=== PATIENT | female | born 1955 | race Caucasian/White ===

== ENCOUNTER 2019-04-30 09:36 | Day surgery (SDC) | payer BC ==
[2019-04-30] MEDS ORDERED: PROPOFOL 10 MG/ML VIAL IV ONE (09:37)
[2019-04-30] MEDS ORDERED: LIDOCAINE 2% MDV (20MG/ML) 20ML VIAL IV ONE (09:37)
--- NOTE | 2019-05-03 10:51 | Operative Note ---
SURGEON: Madiha Eagle MD OPERATION: COLONOSCOPY. INDICATIONS: This is a 63-year-old female with history of change in bowel habits who presented for colonoscopy. POSTOPERATIVE DIAGNOSES: 1. Two 3 mm sessile polyps in the descending colon that were removed by cold biopsy forceps. 2. Otherwise normal colon and terminal ileal mucosa with random colon biopsies to rule out microscopic colitis. ANESTHESIA: Sedation is per Anesthesia. Pulse oximetry was monitored throughout the procedure to maintain O2 saturation of 90% or greater. Supplemental oxygen was administered via nasal cannula. Cardiac and vital signs were monitored throughout the duration of the procedure, and they were stable. The procedure of colonoscopy and risks and alternatives of the procedure, including the risk of bleeding and perforation, among others, were explained to the patient who voiced understanding and agreed to have the procedure done. Physical examination was performed, and the patient was found stable for sedation. PROCEDURE: The patient was placed in the left lateral position. Sedation was initiated. A digital rectal exam was performed and showed some mild external hemorrhoids with no palpable rectal masses. An Olympus PCF-180AL colonoscope was then inserted into the rectum under direct visualization. It was advanced to the cecum without difficulty. The ileocecal valve and appendiceal orifice were identified and photographed. The colonic mucosa was carefully examined upon introduction of the colonoscope. There were no lesions noted. The colonoscope was then withdrawn while carefully examining the colonic mucosal surfaces. No lesions were noted in the cecum, ascending colon, or transverse colon. In the descending colon were two 3 mm sessile polyps that were noted and were removed by cold biopsy forceps. The colonoscope was then withdrawn further and there were no other lesions noted in the sigmoid colon or the rectum. Random colon biopsies were obtained to rule out microscopic colitis. In the rectum, retroflexion was performed and grade 1 internal hemorrhoids were noted. The colonoscope was then withdrawn and the procedure was terminated. The patient tolerated the procedure well without any immediate complications. The patient remained with stable vital signs and was transferred to the recovery room. RECOMMENDATIONS: 1. The patient should be on a high-fiber diet. 2. The patient is to have a repeat colonoscopy for surveillance in 3 or 5 years depending on the histology of the polyps. Thank you for allowing me to participate in the care of your patient. SILVANA
== END 2019-04-30 11:18 | disposition home or self-care (01) ==
LOC: HOP 09:36
PROVIDERS: ATTEND Internal Medicine Gastroenterology
DX: R19.4 Change in bowel habit (principal); R14.0 Abdominal distension (gaseous); K62.5 Hemorrhage of anus and rectum; D12.4 Benign neoplasm of descending colon